=== PATIENT | female | born 1985 | race Caucasian/White ===

== ENCOUNTER 2017-01-31 16:53 | Emergency (ER) | payer OTHER ==
[~2017-01-31] VITALS: Ht 177.8 cm; Wt 90.9 kg
[2017-01-31 16:55] VITALS: BP 136/83; PULSE 107; RESP 18; O2SAT 100
--- NOTE | 2017-01-31 17:38 | DRSVH ---
PROCEDURE: X-RAY LEFT KNEE, THREE VIEWS ([id number]) INDICATIONS: Pain, swelling TECHNIQUE: 3 views of the knee were acquired. COMPARISON: None. FINDINGS: Bones: No fractures or dislocations. No suspicious bony lesions. Postsurgical change of prior ACL reconstruction noted. Soft tissues: No joint effusion. No suspicious soft tissue calcifications. IMPRESSION: Prior ACL reconstruction, no acute disease. Dictated by: Denys Velasquez M.D. on 01/31/2017 at 17:36 Approved by: Denys Velasquez M.D. on 01/31/2017 at 17:37
--- NOTE | 2017-01-31 19:07 | ED.REPORT ---
HPI-Extremity Problem Lower Date of Service Jan 31, 2017 ED Provider: Fabián Blake MD Pt is a 31 year old female with a history of ACL repair who presents to the ED complaining of left knee pain onset this morning when she woke up. She c/o associated left knee swelling and erythema. She denies fever, chills, known injury, and any other symptoms. Pt denies a history of MRSA, but she reports a history of cellulitis. Nursing Notes Stated Complaint: LEFT KNEE SWELLING Chief Complaint: Extremity Trauma Nursing Notes Reviewed: Yes ([employer] not reconciled) Allergies: Coded Allergies: No Known Allergies (Unverified , 01/31/17) Scheduled Cephalexin (Cephalexin) 500 Mg Tablet 500 MG PO TID Sulfamethoxazole/Trimeth 800-160 mg (Bactrim DS) 1 Each Tablet 1 TABLET PO BID Scheduled PRN Hydrocodone-Acetaminophen 5-325 mg (Hydrocodone-Acetaminophen 5-325 mg) 1 Each Tablet 1 TABLET PO Q4H PRN PRN For Pain General Time Seen by MD: 19:00 Chief Complaint Other (Left knee pain) Hx Obtained From: Patient Arrived By: Walk-in Onset Occurred: 5 - 8 hours ago Symptom Duration: Since onset Location: : Knee left Quality: Painful Severity: Current: Moderate Severity: Maximum: Moderate Recent Healthcare: No recent doctor visit, No recent hospitalization Similar Sx Previous: No Past Medical History Past Medical History Hx migraines Hx C6 fracture Cellulitis Past Surgical History ACL repair Reports: Appendectomy Smoking History Current Every Day Smoker Social History Alcohol Use: "Social" Drug Use: Denies drug use Ambulatory Status Independent Review of Systems + Left knee erythema Denies injury Constitutional: Denies: Chills, Fever Musculoskeletal: Reports: Extremity pain, Extremity swelling Complete sys rev & neg: except as marked. Physical Exam Initial Vital Signs Vital Signs (First) Date Time Temp Pulse Resp B/P Pulse Ox O2 Delivery O2 Flow Rate FiO2 01/31/17 16:55 36.6 107 18 136/83 100 Room Air Initial VS: Reviewed, Unavailable (HR 107), Vital signs normal, Vital signs abnormal Head / Eyes: Atraumatic, Normocephalic Neck: Supple, Full range of motion Respiratory: Breath sounds normal, Clear to auscultation, No respiratory distress Cardiovascular: Regular rate & rhythm, Heart sounds normal, Intact distal pulses Abdomen / GI: Soft, Non-tender Upper Extremities: Vascular intact, Neuro intact Skin: Warm, Dry, No cyanosis Neurologic: Alert, Oriented, Nonfocal Psychiatric: Mood/affect normal, Behavior normal Lower Extremity / Pelvis / MS: Full range of motion 4 cm area distal to knee joint across with erythema consistent with cellulitis. I did not see any involvement of joint or septic joint. There was a central lesion without fluctuance that seemed to be a bug bite. There was no fluctuance seen on the US and there was no aspiration seen. Ankle / Foot: Atraumatic, Full range of motion General/Constitutional: Awake, Alert Interpretation & Diagnostics LEFT KNEE US: No fluid seen Performed by: ED physician X-Ray Interpretation Xray Interpretation: IMPRESSION: Prior ACL reconstruction, no acute disease. Dictated by: Denys Velasquez M.D. on 01/31/2017 at 17:36 Study Performed: Three views X-Ray Ordered: Knee left Interpretation / Wet Read by: Interpret - Radiologist Re-Eval/Medical Decision Med Decision/Clinical Course This is a 31-year-old healthy female presents with an area of redness and increasing pain is below the left knee. She has had an episode of cellulitis in the past, but denies known history of MRSA. She reports severe pain at the area of redness and pain. She does not take any known trauma or bite, although this is central little areas it looks like it could have been a bite or an abrasion. The knee joint itself is normal, there is no effusion, no clinical signs of a septic joint-this is a 4- 5 cm diameter area below the area of the joint. The leg is neurovascularly intact. The skin is indurated, but I did not appreciate fluctuance-and bedside ultrasound revealed no fluid. The patient is very concerned and requested I go ahead and attempted incision and drainage, so after local anesthesia attempted a small incision, but got no purulence or evidence of an abscess. The patient's being started on a combination of Bactrim and cephalexin to cover both staph and strep, and have recommended I broken hydrocodone. Routine and return precautions reviewed. The area cellulitis is circumscribed. The patient 's discharged in stable condition. Source of Hx: Old records Re-Evaluation/Progress : Time of Eval: 19:34 Re-Evaluation/Progress Note: No fluid was visible on the US, but the pt still wanted me to try to tap the area. Informed pt of plan for discharge. Pt understands and agrees with plan for discharge. F/U instructions and RTER warnings given. All questions addressed. Differential Diagnosis: Positive: Cellulitis, Negative: Abrasion, Abscess, Achilles tendon rupture, Compartment syndrome, Contusion, Femur fracture, Fibular fracture, Fracture, Hip fracture, Proximal tibia fracture, Puncture wound, Venous thromboembolism Counseled Regarding: Diagnosis, Need for follow-up, When/why to return to ED Discharge & Departure Impression: Primary Impression: Cellulitis Site of cellulitis: extremity Site of cellulitis of extremity: lower extremity Laterality: left Qualified Code: L03.116 - Cellulitis of left lower limb Disposition: Home Discharge Condition All VS Reviewed: Yes Condition: Stable Additional Instructions: 1. This is an area of infection of the skin called cellulitis. Sometimes this can mature into an abscess over the next day or 2, however we did not find any fluid pocket on ultrasound or an attempted aspiration in the department. 2. You need to be on 2 antibiotics: Take trimethoprim sulfa 1 tablet twice a day for 7-10 days. Take cephalexin 500 mg 3 times a day for 7-10 days. 3. Take ibuprofen 400-800 mg 3 times a day for pain as needed. 4. If needed for more severe pain take hydrocodone/APAP 05/325 one to 2 tabs up to every 6 hours. Note: This medication contains a narcotic and causes drowsiness. No driving for at least 4-6 hours after taking. 5. Symptoms are expected to be clinically improving after 24-48 hours of taking antibiotic. If not improving, or if worsening, return to the emergency department. Referrals: OTHER,PHYSICIAN (PCP) (Family) Scribe Attestation Portions of this note were transcribed by Britta Frank. I, Dr. Blaek personally performed the history, physical exam and medical decision-making; I reviewed and confirmed the accuracy of the information in the transcribed note. Signed by: Jesus Nicholson, 01/31/17. copies to: OTHER,PHYSICIAN Fabián Blake MD Jan 31, 2017 19:07 Britta Walden Jan 31, 2017 19:18
[2017-01-31] MEDS ORDERED: Trimethoprim-Sulfa 160 mg-800 mg Tablet PO ONE (19:15)
[2017-01-31] MEDS ORDERED: HYDROmorphone 1 mg/mL Inj IM ONE (19:15)
[2017-01-31] MEDS ORDERED: Ondansetron 8 mg ODT Tablet PO ONE (19:15)
[2017-01-31] MEDS ORDERED: HYDR-4003 PO (19:37)
[2017-01-31] MEDS ORDERED: SULF1TAB7 PO (19:37)
[2017-01-31] MEDS ORDERED: CEPH500T PO (19:37)
[2017-01-31 20:05] VITALS: BP 125/81; PULSE 86; RESP 16; O2SAT 96
== END 2017-01-31 20:06 | disposition home or self-care (01) ==
LOC: SED 16:53
DX: L03.116 Cellulitis of left lower limb (principal); F17.200 Nicotine dependence, unspecified, uncomplicated
CPT/HCPCS: 73562; 96372; 99284; J1170